=== PATIENT | female | born 1970 | race Caucasian/White ===

== ENCOUNTER 2017-08-14 15:05 | Observation (INO) ==
[2017-08-14] MEDS ORDERED: Ondansetron 4 MG/2 ML VIAL IVP PRN (15:10)
[2017-08-14] MEDS ORDERED: *HR* OxyCODONE/APAP 5/325 TABLET PO PRN (15:13)
[2017-08-14] MEDS ORDERED: Acetaminophen 325 MG TABLET PO PRN (15:13)
[2017-08-14] MEDS ORDERED: Nicotine 14 MG PATCH.TD24 TD PRN (15:14)
[2017-08-14] MEDS ORDERED: ALPRAZolam 1 MG TABLET PO PRN (15:15)
[2017-08-14] MEDS ORDERED: Simethicone 80 MG TAB.CHEW PO PRN (15:16)
--- NOTE | 2017-08-14 15:22 | General Surg History&Physical ---
Date of Encounter: 18 Time of Encounter: 15:20 Assessment and Plan (1) RUQ abdominal pain Status: Acute The assessment and plan as outlined above was discussed with the patient and/or family members who expressed understanding and agreement. All questions were answered. POD #[address] Victoria Admit to the hospital IV fluids HIDA scan in the am to rule out leak Toradol for discomfort scheduled Percocet for BTP Clear liquid diet, NPO at midnight pending HIDA scan results Check labs- CBC,BMP,Hepatic panel,Lipase,Amylase IS every 1 hour while awake Ambulate hallways PPI therapy daily Colace BID (2) Tobacco abuse Status: Chronic The assessment and plan as outlined above was discussed with the patient and/or family members who expressed understanding and agreement. All questions were answered. Smoking cessation education Nicotine patch prn (3) Anxiety and depression Status: Chronic The assessment and plan as outlined above was discussed with the patient and/or family members who expressed understanding and agreement. All questions were answered. Resume home medication regimen (4) DVT prophylaxis Status: Acute The assessment and plan as outlined above was discussed with the patient and/or family members who expressed understanding and agreement. All questions were answered. EPCDs to bilateral lower extremities for DVT prohylaxis Ambulate hallways TID History of Present Illness Chief complaint: RUQ pain HPI: See complete HPI in ECW report placed at the nurses station in the patient's chart Past Med Surg Social Fam HX - Past Medical History Source: patient, old records reviewed Medical history: GERD, kidney stones, migraine, other (colitis) Additional medical history: colitis, migraines. Depression. Anxiety. Acid Reflex Psychiatric history: anxiety, depression - Past Surgical History Surgical History: , cholecystectomy (POD #7), hysterectomy, other Additional surgical history: tubal ligtion 1999. bilateral CTR 2003. craniotomy 2010. thermacoice ablation 2005. C-Sections 1987, 1989. Aneurysm clpping 2010 - Social History Smoking Status: Current every day smoker Smokeless Tobacco Status: No Alcohol use: occasionally Drug use: none Occupational status: employed Current living situation: Home - Independent Activity Level: Independent ambulation - Family History Father Living Status: Hx Family Cardiac Disorders: Yes Hx Family Cancer: Yes Mother Living Status: Hx Family Cardiac Disorders: Yes Hx Family Cancer: Yes (Cervical) Sister Living Status: Still Living Hx Family Endocrine Disorder: Yes (Diabetes Mellitus) Paternal Grandmother Living Status: Cause of : Colon cancer Hx Family Cancer: Yes (Colon) Medications and Allergies ALPRAZolam [Xanax 1 MG Tablet] 1 mg PO BID PRN 08/07/17 [History] Acyclovir [Zovirax] 400 mg PO BID 08/07/17 [History] Docusate [Colace] 100 mg PO BID #30 capsule 08/07/17 [Rx] Oxycodone HCl/Acetaminophen [Percocet 5-325 mg Tablet] 1 each PO Q4HR PRN 5 Days #28 tablet 08/07/17 [Rx] Ranitidine HCl [Acid Biomass Technician] 150 mg PO BID 08/07/17 [History] Venlafaxine HCl [Venlafaxine HCl ER] 150 mg PO DAILY 08/07/17 [History] Dicyclomine [Bentyl] 10 mg PO QID #20 capsule 08/11/17 [Rx] Oxycodone HCl/Acetaminophen [Percocet 5-325 mg Tablet] 1 each PO Q4HR PRN 3 Days #16 tablet 08/11/17 [Rx] Simethicone [Gas-X] 80 mg PO TID #15 tab.chew 08/11/17 [Rx] 3 Allergy/AdvReac Type Severity Reaction Status Date / Time No Known Allergies Allergy Verified 08/07/17 07:51 Review of Systems All systems PM: reviewed and no additional remarkable complaints except as stated (in the HPI- ECW report) All systems PM: The remainder of the systems were reviewed and are negative General Surgery Exam - General physical appearance well developed, well nourished, moderate distress, moderate pain - Eyes PERRL, normal ocular movement - ENT normal mucosa, atraumatic, normocephalic - Neck trachea midline - Respiratory normal respiratory effort, clear to auscultation - Cardiovascular Cardiovascular exam: Present: RRR - Abdomen Abdomen general surgery: Present: bowel sounds present, soft, tender Abdominal Tenderness: Present: RUQ - Incision Incision: Present: clean and dry, intact - Integumentary Integumentary general surgery: Present: warm and dry - Neurologic Present: CN 2-12 grossly intact - Psychiatric Psychiatric general surgery: Present: appropriate, oriented to person, oriented to place, oriented to time, speech is normal, memory intact Results - Labs All other labs normal. - Imaging CT scan - abdomen: report reviewed CT scan - pelvis: report reviewed - Attending Attestation For this encounter, I have reviewed the VULCANIZER RUBBER PLATE or PA documentation, treatment plan, and medical decision making; and I have had face to face time with this patient.
[2017-08-14 16:30] LABS: Basophils # 0.1 K/mcL (0.0-0.2); Basophils % 0.7 %; Eosinophils # 0.4 K/mcL (0.0-0.6); Eosinophils % 3.4 %; Hematocrit 43.6 % (35.3-44.9); Hemoglobin 14.7 g/dL (11.5-15.4); Immature Granulocytes % 0.3 % (0-4); Lymphocytes # 3.2 K/mcL (0.6-4.6); Mean Corpuscular HGB Conc 33.7 g/dL (31.6-35.5); Mean Corpuscular Hemoglobin 32.8 pg (28.0-33.3); Mean Corpuscular Volume 97.3 fL (83.0-100.0); Mean Platelet Volume 9.2 fL (9.4-12.4); Monocytes % 8.1 %; Neutrophils # 7.5 K/mcL (1.6-8.9); Platelet Count 279 K/mcL (140-400); Red Blood Count 4.48 M/mcL (3.82-4.97); Red Cell Distribution Width 12.3 % (11.5-14.5); Segmented Neutrophils % 61.5 %
[2017-08-14 16:56] LABS: Alanine Aminotransferase 32 Units/L (7-52); Albumin 4.1 g/dL (3.5-5.7); Albumin/Globulin Ratio 1.6 (1.1-2.2); Alkaline Phosphatase 79 Units/L (34-104); Amylase 56 Units/L (29-103); Aspartate Amino Transferase 18 Units/L (13-39); BUN/Creatinine Ratio 21 (6-26); Bilirubin,Indirect 0.2 mg/dL (0.0-1.2); Bilirubin,Total 0.2 mg/dL (0.3-1.0); Blood Urea Nitrogen 15 mg/dL (6-20); Calcium 9.6 mg/dL (8.6-10.3); Carbon Dioxide 25 mEq/L (23-29); Chloride 108 mEq/L (98-107); Globulin 2.6 g/dL (2.4-3.5); Glucose 92 mg/dL (70-105); Lipase 26 Units/L (11-82); Osmolality,Calculated 288 (280-300); Potassium 4.1 mEq/L (3.5-5.1); Sodium 139 mEq/L (136-145); Total Protein 6.7 g/dL (6.4-8.9); eGFR For African Americans > 60 (> 60); eGFR For Non-African Americans > 60 (> 60)
[2017-08-14] MEDS: Ketorolac 15 MG/ML VIAL IVP SCH ×2 (17:59→18:15)
[2017-08-14] MEDS: 0.9 % Sodium Chloride 1,000 ML IVC SCH (18:15)
[2017-08-15] MEDS: Ketorolac 15 MG/ML VIAL IVP SCH ×2 (00:05→04:39)
[2017-08-15 07:53] VITALS: BP 108/69
[2017-08-15 08:31] LABS: Basophils # 0.1 K/mcL (0.0-0.2); Basophils % 0.8 %; Eosinophils # 0.4 K/mcL (0.0-0.6); Eosinophils % 4.1 %; Hematocrit 41.4 % (35.3-44.9); Hemoglobin 13.9 g/dL (11.5-15.4); Immature Granulocytes % 0.4 % (0-4); Lymphocytes # 2.2 K/mcL (0.6-4.6); Lymphocytes % 23.3 %; Mean Corpuscular HGB Conc 33.6 g/dL (31.6-35.5); Mean Corpuscular Hemoglobin 32.8 pg (28.0-33.3); Mean Corpuscular Volume 97.6 fL (83.0-100.0); Mean Platelet Volume 9.3 fL (9.4-12.4); Monocytes # 0.8 K/mcL (0.0-1.3); Monocytes % 8.2 %; Platelet Count 264 K/mcL (140-400); Red Blood Count 4.24 M/mcL (3.82-4.97); Red Cell Distribution Width 12.5 % (11.5-14.5); Segmented Neutrophils % 63.2 %
[2017-08-15 08:47] LABS: BUN/Creatinine Ratio 19 (6-26); Blood Urea Nitrogen 11 mg/dL (6-20); Calcium 8.9 mg/dL (8.6-10.3); Carbon Dioxide 22 mEq/L (23-29); Chloride 111 mEq/L (98-107); Glucose 96 mg/dL (70-105); Osmolality,Calculated 289 (280-300); Potassium 4.3 mEq/L (3.5-5.1); Sodium 140 mEq/L (136-145); eGFR For African Americans > 60 (> 60); eGFR For Non-African Americans > 60 (> 60)
[2017-08-15] MEDS ORDERED: Venlafaxine XR (24 HR) 150 MG CAP.ER.24H PO SCH (09:00)
[2017-08-15] MEDS: 0.9 % Sodium Chloride 1,000 ML IVC SCH (09:10)
--- NOTE | 2017-08-15 10:08 | Discharge Summary ---
Date of Encounter: 08/15/17 Time of Encounter: 10:00 - Discharge Diagnosis (1) RUQ abdominal pain Priority: Primary Status: Acute (2) Tobacco abuse Priority: Secondary Status: Chronic (3) Anxiety and depression Priority: Secondary Status: Chronic General Surgery Exam Initial Vital Signs Temp Pulse Resp BP Pulse Ox 98.2 F 84 16 123/82 97 08/14/17 15:54 08/14/17 15:54 08/14/17 15:54 08/14/17 15:54 08/14/17 15:54 - General physical appearance well developed, well nourished, no distress - Eyes normal ocular movement - ENT normal mucosa, atraumatic, normocephalic - Neck trachea midline - Respiratory normal respiratory effort, clear to auscultation - Cardiovascular Cardiovascular exam: Present: RRR - Abdomen Abdomen general surgery: Present: bowel sounds present, soft, tender Abdominal Tenderness: Present: RUQ (improving) - Incision Incision: Present: clean and dry, intact - Integumentary Integumentary general surgery: Present: warm and dry - Neurologic Present: CN 2-12 grossly intact - Musculoskeletal Present: normal gait, normal posture - Psychiatric Psychiatric general surgery: Present: appropriate, oriented to person, oriented to place, oriented to time, speech is normal, memory intact - Hospital Course Hospital course: Ms. Hawthorne is a 47 year old female who is 1 week status post cholecystectomy with Dr. Victoria. She was admitted to the hospital yesterday for persistent right upper quadrant pain. She was started on supportive care including IV fluids and pain control with Toradol. She did have a HIDA scan complete which shows no evidence of a biliary leak. The patient states that she feels better today with anti-inflammatories. Her vital signs are stable and she is afebrile. She is voiding and ambulating without difficulty. She is tolerating liquids without nausea or vomiting. We will begin discharge planning to home and plan for outpatient follow-up in 1 week. - Time Spent with Patient Total time spent providing and/or coordinating discharge services: Less than 30 minutes - Discharge Medications Prescriptions: Ibuprofen [Motrin] 800 mg PO Q8HR #40 tablet Home Medications: ALPRAZolam [Xanax 1 MG Tablet] 1 mg PO BID PRN 08/07/17 [History] Acyclovir [Zovirax] 400 mg PO BID 08/07/17 [History] Docusate [Colace] 100 mg PO BID #30 capsule 08/07/17 [Rx] Oxycodone HCl/Acetaminophen [Percocet 5-325 mg Tablet] 1 each PO Q4HR PRN 5 Days #28 tablet 08/07/17 [Rx] Ranitidine HCl [Acid Precision Grinder External] 150 mg PO BID 08/07/17 [History] Venlafaxine HCl [Venlafaxine HCl ER] 150 mg PO DAILY 08/07/17 [History] Dicyclomine [Bentyl] 10 mg PO QID #20 capsule 08/11/17 [Rx] Simethicone [Gas-X] 80 mg PO TID #15 tab.chew 08/11/17 [Rx] Ibuprofen [Motrin] 800 mg PO Q8HR #40 tablet 08/15/17 [Rx] Allergies/Adverse Reactions: 3 Allergy/AdvReac Type Severity Reaction Status Date / Time No Known Allergies Allergy Verified 08/07/17 07:51 Date of admission: 08/14/17 15:29 Primary care physician: Bia Cancino CNP Discharging clinician: Crys Kim Anticipated date of discharge: 08/15/17 Labs on day of discharge: Labs from last 24 hours 08/15/17 08/15/17 08/15/17 08:18 08:18 05:27 WBC 9.4 RBC 4.24 Hgb 13.9 Hct 41.4 MCV 97.6 MCH 32.8 MCHC 33.6 RDW 12.5 Plt Count 264 MPV 9.3 L Immature Gran % 0.4 Seg Neutrophils % 63.2 Lymphocytes % 23.3 Monocytes % 8.2 Eosinophils % 4.1 Basophils % 0.8 Neutrophils # 6.0 Lymphocytes # 2.2 Monocytes # 0.8 Eosinophils # 0.4 Basophils # 0.1 Sodium 140 Potassium 4.3 Chloride 111 H Carbon Dioxide 22 L BUN 11 Creatinine 0.57 L Est GFR ( Amer) > 60 Est GFR (Non-Af Amer) > 60 BUN/Creatinine Ratio 19 Glucose 96 POC Glucose 88 Calculated Osmolality 289 Calcium 8.9 Total Bilirubin Direct Bilirubin Indirect Bilirubin AST ALT Alkaline Phosphatase Serum Total Protein Albumin Globulin Albumin/Globulin Ratio Amylase Lipase 08/14/17 08/14/17 16:17 16:17 WBC 12.2 H RBC 4.48 Hgb 14.7 Hct 43.6 MCV 97.3 MCH 32.8 MCHC 33.7 RDW 12.3 Plt Count 279 MPV 9.2 L Immature Gran % 0.3 Seg Neutrophils % 61.5 Lymphocytes % 26.0 Monocytes % 8.1 Eosinophils % 3.4 Basophils % 0.7 Neutrophils # 7.5 Lymphocytes # 3.2 Monocytes # 1.0 Eosinophils # 0.4 Basophils # 0.1 Sodium 139 Potassium 4.1 Chloride 108 H Carbon Dioxide 25 BUN 15 Creatinine 0.70 Est GFR ( Amer) > 60 Est GFR (Non-Af Amer) > 60 BUN/Creatinine Ratio 21 Glucose 92 POC Glucose Calculated Osmolality 288 Calcium 9.6 Total Bilirubin 0.2 L Direct Bilirubin 0.0 Indirect Bilirubin 0.2 AST 18 ALT 32 Alkaline Phosphatase 79 Serum Total Protein 6.7 Albumin 4.1 Globulin 2.6 Albumin/Globulin Ratio 1.6 Amylase 56 Lipase 26 - Impressions ITS Impressions Bile Acid Absorption NM 08/15/17 07:00 IMPRESSION: No biliary leak identified. D/ / 08/15/2017 08:47:26 Jose Vargas MD / sherita Interpreting Provider: Jose Vargas MD - Patient Status Disposition: Home, Self-Care Condition: Good Functional capacity at discharge: independent ambulation Overall status at discharge: patient is progressing back to baseline - Discharge Instructions Instructions: Acute Abdominal Pain (DC) Follow Up With: Crysatl Olmos CNP [Advanced Practice Nurse] - 08/22/17 2:15 pm (surgery follow -up) Forms: Work/School Release Additional Instructions: #1 may shower, no tub bath for 2 weeks #2 wash incisions with soap and water and pat dry daily #3 no lifting, pushing, pulling more than 15 pounds for the next 1 more week #4 no driving until off narcotics for 24 hours and able to safely react in the car #5 may climb stairs - Diet and Activity Activity: other (See additional instructions above) Diet: advance to your usual diet - Attending Attestation For this encounter, I have reviewed the MANAGER MISSION or PA documentation, treatment plan, and medical decision making; and I have had face to face time with this patient.
== END 2017-08-15 10:44 | disposition home or self-care (01) ==
LOC: 3ANU
PROVIDERS: ADMIT Surgery; ATTEND Surgery

== ENCOUNTER 2018-07-09 15:39 | Inpatient (IN) ==
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
[2018-07-09] MEDS ORDERED: Isovue-370 500 ML BOTTLE IVP ONE (16:06)
[2018-07-09 16:35] LABS: Basophils # 0.1 K/mcL (0.0-0.2); Basophils % 0.6 %; Eosinophils # 0.1 K/mcL (0.0-0.6); Eosinophils % 0.8 %; Hematocrit 46.5 % (35.3-44.9); Hemoglobin 15.7 g/dL (11.5-15.4); Immature Granulocytes % 0.4 % (0-4); Lymphocytes # 2.4 K/mcL (0.6-4.6); Lymphocytes % 17.5 %; Mean Corpuscular HGB Conc 33.8 g/dL (31.6-35.5); Mean Corpuscular Volume 97.7 fL (83.0-100.0); Mean Platelet Volume 9.1 fL (9.4-12.4); Monocytes # 0.8 K/mcL (0.0-1.3); Monocytes % 5.7 %; Neutrophils # 10.2 K/mcL (1.6-8.9); Platelet Count 285 K/mcL (140-400); Red Blood Count 4.76 M/mcL (3.82-4.97); Red Cell Distribution Width 12.1 % (11.5-14.5)
[2018-07-09 16:36] LABS: Bilirubin,Urine Negative (Negative); Blood,Urine Negative (Negative); Clarity,Urine Clear (Clear); Color,Urine Yellow (Yellow); Glucose,Urine (UA) Normal (Normal); Ketones,Urine Negative (Negative); Leukocyte Esterase,Urine Negative (Negative); Nitrite,Urine Negative (Negative); Protein,Urine Negative (Neg-Trace); Specific Gravity,Urine 1.007 (1.010-1.025); Urobilinogen,Urine Normal (Normal)
[2018-07-09 16:42] LABS: Amphetamine Screen,Urine Negative ng/mL (Cutoff=1000); Barbiturate Screen,Urine Negative ng/mL (Cutoff=200); Benzodiazepines Screen,Urine Negative ng/mL (Cutoff=200); Cannabinoid Screen,Urine Negative ng/mL (Cutoff = 50); Cocaine Screen,Urine Negative ng/mL (Cutoff= 300); Opiate Screen,Urine Negative ng/mL (Cutoff=300); Phencyclidine Screen,Urine Negative ng/mL (Cutoff=25)
[2018-07-09 16:56] LABS: Acetaminophen < 10 mcg/mL (10-20); BUN/Creatinine Ratio 18 (6-26); Blood Urea Nitrogen 13 mg/dL (6-20); Calcium 9.8 mg/dL (8.6-10.3); Carbon Dioxide 27 mEq/L (23-29); Chloride 106 mEq/L (98-107); Ethanol < 10 mg/dL (Less than 10); Glucose 98 mg/dL (70-105); Osmolality,Calculated 286 (280-300); Potassium 4.1 mEq/L (3.5-5.1); Salicylate < 2.5 mg/dL (15.0-30.0); Sodium 138 mEq/L (136-145); eGFR For Non-African Americans > 60 (> 60)
--- NOTE | 2018-07-09 18:10 | Emergency Department Note ---
Disposition Clinical Impression: Suicidal ideation, Hanging Disposition: Admitted As Inpatient Condition: Fair Forms: ED Satisfaction Letter Time of Disposition: 18:25 General Adult HPI - General Chief complaint: ED Psychiatric Symptoms Stated complaint: SI Time Seen by Provider: 07/09/18 15:55 Source: patient, EMS Mode of arrival: EMS Limitations: no limitations - History of Present Illness Pain Scale: 1 - Related Data Home Medications Medication Instructions Recorded Confirmed ALPRAZolam [Xanax 1 MG Tablet] 1 mg PO BID PRN 08/07/17 08/15/17 Acyclovir [Zovirax] 400 mg PO BID 08/07/17 08/15/17 Ranitidine HCl [Acid Bleacher [employer]] 150 mg PO BID 08/07/17 08/15/17 Venlafaxine HCl [Venlafaxine HCl 150 mg PO DAILY 08/07/17 08/15/17 ER] Previous Rx's Medication Instructions Recorded Docusate [Colace] 100 mg PO BID #30 capsule 08/07/17 Oxycodone HCl/Acetaminophen 1 each PO Q4HR PRN 5 Days #28 08/07/17 [Percocet 5-325 mg Tablet] tablet Dicyclomine [Bentyl] 10 mg PO QID #20 capsule 08/11/17 Simethicone [Gas-X] 80 mg PO TID #15 tab.chew 08/11/17 Ibuprofen [Motrin] 800 mg PO Q8HR #40 tablet 08/15/17 Allergies Allergy/AdvReac Type Severity Reaction Status Date / Time No Known Allergies Allergy Verified 08/07/17 07:51 Past Medical History - Past Medical History Medical history: Reports: GERD, migraine, other Surgical history: Reports: , cholecystectomy, hysterectomy, other Psychiatric history: Reports: anxiety, depression, prior suicide attempt - Social History Smoking Status: Current every day smoker Smokeless Tobacco Status: No Alcohol use: Reports: occasionally Drug use: Reports: none Physical Exam - General Limitations: no limitations General appearance: alert Course Vital Signs Temperature 97.9 F 07/09/18 15:44 Pulse Rate 83 07/09/18 15:44 Respiratory Rate 16 07/09/18 15:44 Blood Pressure 120/75 07/09/18 15:44 O2 Sat by Pulse Oximetry 98 07/09/18 15:44 Temperature 97.9 F 07/09/18 15:44 Pulse Rate 83 07/09/18 15:44 Respiratory Rate 16 07/09/18 15:44 Blood Pressure 120/75 07/09/18 15:44 O2 Sat by Pulse Oximetry 98 07/09/18 15:44 Oxygen Delivery Oxygen Delivery Room Air Medical Decision Making - Lab Data Result diagrams: 07/09/18 16:22 07/09/18 16:22 Lab Results 07/09/18 07/09/18 07/09/18 Range/Units 16:03 16:03 16:22 WBC 13.6 H (4.3-11.1) K/mcL RBC 4.76 (3.82-4.97) M/mcL Hgb 15.7 H (11.5-15.4) g/dL Hct 46.5 H (35.3-44.9) % MCV 97.7 (83.0-100.0) fL MCH 33.0 (28.0-33.3) pg MCHC 33.8 (31.6-35.5) g/dL RDW 12.1 (11.5-14.5) % Plt Count 285 (140-400) K/mcL MPV 9.1 L (9.4-12.4) fL Immature Gran % 0.4 (0-4) % Seg Neutrophils % 75.0 % Lymphocytes % 17.5 % Monocytes % 5.7 % Eosinophils % 0.8 % Basophils % 0.6 % Neutrophils # 10.2 H (1.6-8.9) K/mcL Lymphocytes # 2.4 (0.6-4.6) K/mcL Monocytes # 0.8 (0.0-1.3) K/mcL Eosinophils # 0.1 (0.0-0.6) K/mcL Basophils # 0.1 (0.0-0.2) K/mcL Sodium (136-145) mEq/L Potassium (3.5-5.1) mEq/L Chloride (98-107) mEq/L Carbon Dioxide (23-29) mEq/L BUN (6-20) mg/dL Creatinine (0.60-1.20) mg/dL Est GFR ( Amer) (> 60) Est GFR (Non-Af Amer) (> 60) BUN/Creatinine Ratio (6-26) Glucose (70-105) mg/dL Calculated Osmolality (280-300) Calcium (8.6-10.3) mg/dL Urine Color Yellow (Yellow) Urine Clarity Clear (Clear) Urine pH 6.0 (5.0-8.0) pH Units Ur Specific [place] 1.007 L (1.010-1.025) Urine Protein Negative (Neg-Trace) mg/dL Urine Glucose (UA) Normal (Normal) mg/dL Urine Ketones Negative (Negative) mg/dL Urine Blood Negative (Negative) Urine Nitrite Negative (Negative) Urine Bilirubin Negative (Negative) Urine Urobilinogen Normal (Normal) mg/dL Ur Leukocyte Esterase Negative (Negative) Salicylates (15.0-30.0) mg/dL Urine Opiates Screen Negative (Khkqgv=499) ng/mL Acetaminophen (10-20) mcg/mL Ur Barbiturates Screen Negative (Dxaxkl=500) ng/mL Ur Phencyclidine Scrn Negative (Cutoff=25) ng/mL Ur Amphetamines Screen Negative (Jnfhuw=4238) ng/mL U Benzodiazepines Scrn Negative (Gfjgqw=190) ng/mL Urine Cocaine Screen Negative (Cutoff= 300) ng/mL U Marijuana (THC) Screen Negative (Cutoff = 50) ng/mL Ur Drug Screen Interp See Below Ethyl Alcohol (Less than 10) mg/dL 07/09/18 Range/Units 16:22 WBC (4.3-11.1) K/mcL RBC (3.82-4.97) M/mcL Hgb (11.5-15.4) g/dL Hct (35.3-44.9) % MCV (83.0-100.0) fL MCH (28.0-33.3) pg MCHC (31.6-35.5) g/dL RDW (11.5-14.5) % Plt Count (140-400) K/mcL MPV (9.4-12.4) fL Immature Gran % (0-4) % Seg Neutrophils % % Lymphocytes % % Monocytes % % Eosinophils % % Basophils % % Neutrophils # (1.6-8.9) K/mcL Lymphocytes # (0.6-4.6) K/mcL Monocytes # (0.0-1.3) K/mcL Eosinophils # (0.0-0.6) K/mcL Basophils # (0.0-0.2) K/mcL Sodium 138 (136-145) mEq/L Potassium 4.1 (3.5-5.1) mEq/L Chloride 106 (98-107) mEq/L Carbon Dioxide 27 (23-29) mEq/L BUN 13 (6-20) mg/dL Creatinine 0.73 (0.60-1.20) mg/dL Est GFR ( Amer) > 60 (> 60) Est GFR (Non-Af Amer) > 60 (> 60) BUN/Creatinine Ratio 18 (6-26) Glucose 98 (70-105) mg/dL Calculated Osmolality 286 (280-300) Calcium 9.8 (8.6-10.3) mg/dL Urine Color (Yellow) Urine Clarity (Clear) Urine pH (5.0-8.0) pH Units Ur Specific [place] (1.010-1.025) Urine Protein (Neg-Trace) mg/dL Urine Glucose (UA) (Normal) mg/dL Urine Ketones (Negative) mg/dL Urine Blood (Negative) Urine Nitrite (Negative) Urine Bilirubin (Negative) Urine Urobilinogen (Normal) mg/dL Ur Leukocyte Esterase (Negative) Salicylates < 2.5 L (15.0-30.0) mg/dL Urine Opiates Screen (Elclnh=417) ng/mL Acetaminophen < 10 L (10-20) mcg/mL Ur Barbiturates Screen (Vylajz=669) ng/mL Ur Phencyclidine Scrn (Cutoff=25) ng/mL Ur Amphetamines Screen (Hfozmb=5213) ng/mL U Benzodiazepines Scrn (Ycebuq=989) ng/mL Urine Cocaine Screen (Cutoff= 300) ng/mL U Marijuana (THC) Screen (Cutoff = 50) ng/mL Ur Drug Screen Interp Ethyl Alcohol < 10 (Less than 10) mg/dL Attestation Statement - Attestation Attestation: I, Stephon Camarillo DO, examined this patient [id number] and my medical decision-making was reviewed with Randall Grey PGY-1, Resident Physician. I agree with the documented findings, disposition and treatment plan as described except to the extent set forth below. I personally supervised and was present for the daly/critical portions of the procedures completed by the resident documented below. Please see my progress notes for details. 48-year-old female presents emergency room by EMS for evaluation of being found hanging from a tree by a belt. Patient was cut down by a friend. She woke up easily after she was removed from the tree. She is mentating appropriately but does have ligature schroeder on her neck. Patient had c-collar placed and then removed it on her own on the way to the emergency department. Vital signs are stable transport. Patient is otherwise in no distress on arrival. She is tearful describing significant life stressors but is saying that she would not want to hurt herself. Currently she denying chest pain, shortness of breath, headache, vision changes, nausea, vomiting, diarrhea. No fevers no chills. No headache no vision change at this time. Head is atraumatic. Oropharynx is pain . Patient has no crepitus or deformity to the neck. She did not jump or have a long fall. She does turn to chair sideways and home from the tree branch. She has ligature schroeder the neck. She has no signs of decreased breath sounds heart is regular lungs are clear extremities are normal. She denies any other coingestion. CT of the cervical spine along with CT angiography the neck will be completed. Screening labs for psychiatric evaluation will be established and pink slip was signed. Physical exam is otherwise unremarkable. Disposition pending full workup and treatment course. See detailed documentation of the physical exam, medical intervention, medical decision-making and disposition in the resident physician's note. No critical care applied the patient's treatment course at this time. 1815 Patient was evaluated by the psychiatric team. CT angiography of the neck and cervical spine are negative. Patient is going to be admitted by the psychiatric team. Patient is otherwise stable. We will monitor here in the emergency department until the admission is completed.
[2018-07-09] MEDS ORDERED: MOM Conc 10 ML UD.LIQ PO PRN (19:02)
[2018-07-09] MEDS ORDERED: Haloperidol Lactate 5 MG/ML VIAL IM PRN (19:02)
[2018-07-09] MEDS ORDERED: *HR* LORazepam 2 MG/ML VIAL IM PRN (19:02)
[2018-07-09] MEDS ORDERED: *HR* LORazepam 1 MG TABLET PO PRN (19:02)
[2018-07-09] MEDS ORDERED: Acetaminophen 325 MG TABLET PO PRN (19:02)
[2018-07-09] MEDS ORDERED: Mag Hydrox/Al Hydrox/Simeth 30 ML UDC PO PRN (19:02)
[2018-07-09] MEDS ORDERED: Ibuprofen 400 MG TABLET PO PRN (19:29)
[2018-07-09] MEDS: traZODone 50 MG TABLET PO PRN (21:14)
[2018-07-09] MEDS: hydrOXYzine pamoate 25 MG CAPSULE PO PRN (21:14)
[2018-07-10] MEDS: Nicotine 14 MG PATCH.TD24 TD SCH (08:58)
--- NOTE | 2018-07-10 13:29 | Psychiatry History & Physical ---
Date of Encounter: 07/10/18 Time of Encounter: 12:58 History of Present Illness Patient Stated Chief Complaint: suicide attempt Medicare Admission Attestation: For traditional Medicare patients the provided hospital inpatient services are reasonable and necessary and in the case of services not specified as inpatient-only under 42 CFR 419.22 (n), that they are appropriately provided as inpatient services in accordance 42 CFR 412.3. For Critical Access Hospital the patient may reasonably be expected to be discharged or transferred to a hospital within 96 hours after admission to the Critical Access Hospital. Admitted From: Home Plans for Post Hospital Care: Home History of Present Illness: Ms. Hawthorne is a 48 year old female who was admitted after a failed hanging attempt. 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 Client states even though she tried to get mental health services at that time it did not work out and she has not made any further attempts. She does take Effexor and Klonopin through her PCP but admits she does not always take these meds as prescribed. Client denies any previous suicide attempts. Admits that she has both a niece and nephew who have committed suicide but that these deaths are remote. Unaware of any other mental health diagnoses in family members. 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 No AOD use. Client states today that she embarrassed about what she did. Also states she feels like this was a wake up call for her and that she wants to get help. Denies any further SI, intent, or plan. Upset when told she won't be discharged today given the seriousness of what she did. Walked out of room when told she would be staying in the hospital for at least tonight. Client states her daughter can stay with her after discharge. Plan for today will be to talk to daughter and link client with outpatient follow-up. Client likes the Effexor and Klonopin so will continue these meds for now. Client may be ready for discharge tomorrow but want to verify safety with family first. Client seems genuine in wanting to get help and seems legitimately ashamed of her actions. "I'm better than that." However, given her situation it is best to monitor her for another night. Past Med Surg Social Fam HX - Past Medical History Medical history: GERD, migraine, other - Past Psychiatric History Psychiatric history: Reports: no psych history Family psychiatric history: Yes Family Psychiatric History Details: niece and nephew Family History of Suicide: Completed Family Suicide History Details: niece and nephew - Past Surgical History Surgical History: , cholecystectomy, hysterectomy, other - Social History Smoking Status: Current every day smoker Smokeless Tobacco Status: No Alcohol use: occasionally Drug use: none - Family History Father Living Status: Hx Family Cardiac Disorders: Yes Hx Family Cancer: Yes Mother Living Status: Hx Family Cardiac Disorders: Yes Hx Family Cancer: Yes (Cervical) Sister Living Status: Still Living Hx Family Endocrine Disorder: Yes (Diabetes Mellitus) Paternal Grandmother Living Status: Hx Family Cancer: Yes (Colon) Medications & Allergies Acyclovir [Zovirax] 400 mg PO BID 08/07/17 [History] Ranitidine HCl [Acid Dietary Server] 150 mg PO BID 08/07/17 [History] Venlafaxine HCl [Venlafaxine HCl ER] 150 mg PO DAILY 08/07/17 [History] Dicyclomine [Bentyl] 10 mg PO QID PRN 07/09/18 [History] Oxybutynin Chloride [Ditropan Xl] 10 mg PO DAILY 07/09/18 [History] clonazePAM [Clonazepam] 1 mg PO TID PRN 07/09/18 [History] Allergy/AdvReac Type Severity Reaction Status Date / Time No Known Allergies Allergy Verified 08/07/17 07:51 Review of Systems Constitutional: Denies: fever, chills, weakness, weight change Eyes: Denies: eye pain, vision change Ears, Nose, Throat: Denies: ear pain, throat pain, dental pain, hearing loss, congestion Cardiovascular: Denies: chest pain, palpitations, dyspnea on exertion Respiratory: Denies: cough, dyspnea, wheezes Gastrointestinal: Denies: abdominal pain, nausea, vomiting, diarrhea, constipation Genitourinary female: Denies: urgency, dysuria, frequency, abnormal menses, dyspareunia Musculoskeletal: Denies: joint swelling, joint pain Integumentary: Denies: rash, lesions, pruritus Neurological: Denies: headache, weakness, numbness, memory loss Endocrine: Denies: fatigue, heat or cold intolerance Hematologic/Lymphatic: Denies: easy bruising, lymphadenopathy Allergic/Immunologic: Denies: urticaria, itchy eyes Exam - HEENT Head exam IM: Present: atraumatic Eye exam IM: Present: EOMI, normal appearance, PERRL ENT exam IM: Present: normal exam - Neurological Neurological exam: Present: CN II-XII intact - Respiratory Respiratory exam IM: Present: CTAB - GI/Abdominal GI/Abdominal exam IM: Present: normal bowel sounds, soft. Absent: tenderness - Extremities Extremities exam IM: Present: full ROM - Skin Skin exam IM: Present: abrasion - Constitutional Vitals: Temp Pulse Resp BP Pulse Ox 97.3 F L 78 16 111/65 95 07/10/18 09:00 07/10/18 09:00 07/10/18 09:00 07/10/18 09:00 07/10/18 09:00 General appearance: age & developmentally appropriate, well-groomed, well- nourished - Musculoskeletal Gait: normal Station: relaxed Strength & Tone: normal for patient - Psychiatric Patient Orientation: Yes Person, Yes Time, Yes Place Level of alertness: Alert Behavior: calm, cooperative Psychomotor activity: Normal Eye Contact: Maintains Eye Contact Mood Description: Depressed Affect description: full range Speech Volume: Normal Speech pattern: normal rate, normal rhythm, normal tone, fluent, spontaneous Language & Vocabulary: consistent with education Thought Process: Linear, Goal Oriented Thought Content: No Suicidal ideation, No Homicidal ideation, No Overt delusions Perceptual Disturbances: No Auditory hallucinations, No Visual hallucinations Attention Span Ability: Capable of Focused Attention Memory Description: Grossly Intact Patient Reliability: Reliable Historian Fund of knowledge: Yes abstraction ability, Yes average, Yes aware of current events Intelligence Estimate: Average Judgment: Limited Insight: Minimal Results - Drug Levels and Toxicology Drug Levels and Toxicology: Drug Levels and Toxicity 07/09/18 07/09/18 16:03 16:22 Urine Opiates Screen Negative Acetaminophen < 10 L Ur Barbiturates Screen Negative Ur Phencyclidine Scrn Negative Ur Amphetamines Screen Negative U Benzodiazepines Scrn Negative Urine Cocaine Screen Negative U Marijuana (THC) Screen Negative Ethyl Alcohol < 10 - Labs Labs: Laboratory Last Values WBC 13.6 K/mcL (4.3-11.1) H 07/09/18 16:22 RBC 4.76 M/mcL (3.82-4.97) 07/09/18 16:22 Hgb 15.7 g/dL (11.5-15.4) H 07/09/18 16:22 Hct 46.5 % (35.3-44.9) H 07/09/18 16:22 MCV 97.7 fL (83.0-100.0) 07/09/18 16:22 MCH 33.0 pg (28.0-33.3) 07/09/18 16:22 MCHC 33.8 g/dL (31.6-35.5) 07/09/18 16:22 RDW 12.1 % (11.5-14.5) 07/09/18 16:22 Plt Count 285 K/mcL (140-400) 07/09/18 16:22 MPV 9.1 fL (9.4-12.4) L 07/09/18 16:22 Immature Gran % 0.4 % (0-4) 07/09/18 16:22 Seg Neutrophils % 75.0 % 07/09/18 16:22 17.5 % 07/09/18 16:22 5.7 % 07/09/18 16:22 0.8 % 07/09/18 16:22 0.6 % 07/09/18 16:22 10.2 K/mcL (1.6-8.9) H 07/09/18 16:22 2.4 K/mcL (0.6-4.6) 07/09/18 16:22 0.8 K/mcL (0.0-1.3) 07/09/18 16:22 0.1 K/mcL (0.0-0.6) 07/09/18 16:22 0.1 K/mcL (0.0-0.2) 07/09/18 16:22 Sodium 138 mEq/L (136-145) 07/09/18 16:22 Potassium 4.1 mEq/L (3.5-5.1) 07/09/18 16:22 Chloride 106 mEq/L (98-107) 07/09/18 16:22 Carbon Dioxide 27 mEq/L (23-29) 07/09/18 16:22 BUN 13 mg/dL (6-20) 07/09/18 16:22 0.73 mg/dL (0.60-1.20) 07/09/18 16:22 Est GFR ( Amer) > 60 (> 60) 07/09/18 16:22 Est GFR (Non-Af Amer) > 60 (> 60) 07/09/18 16:22 18 (6-26) 07/09/18 16:22 Glucose 98 mg/dL (70-105) 07/09/18 16:22 286 (280-300) 07/09/18 16:22 Calcium 9.8 mg/dL (8.6-10.3) 07/09/18 16:22 Yellow (Yellow) 07/09/18 16:03 Clear (Clear) 07/09/18 16:03 6.0 pH Units (5.0-8.0) 07/09/18 16:03 Ur Specific [place] 1.007 (1.010-1.025) L 07/09/18 16:03 Negative mg/dL (Neg-Trace) 07/09/18 16:03 Normal mg/dL (Normal) 07/09/18 16:03 Negative mg/dL (Negative) 07/09/18 16:03 Negative (Negative) 07/09/18 16:03 Negative (Negative) 07/09/18 16:03 Negative (Negative) 07/09/18 16:03 Normal mg/dL (Normal) 07/09/18 16:03 Ur Leukocyte Esterase Negative (Negative) 07/09/18 16:03 Salicylates < 2.5 mg/dL (15.0-30.0) L 07/09/18 16:22 Negative ng/mL (Hxktkb=177) 07/09/18 16:03 Acetaminophen < 10 mcg/mL (10-20) L 07/09/18 16:22 Ur Barbiturates Screen Negative ng/mL (Hyvdml=349) 07/09/18 16:03 Ur Phencyclidine Scrn Negative ng/mL (Cutoff=25) 07/09/18 16:03 Ur Amphetamines Screen Negative ng/mL (Zytbid=3661) 07/09/18 16:03 U Benzodiazepines Scrn Negative ng/mL (Zitckg=831) 07/09/18 16:03 Negative ng/mL (Cutoff= 300) 07/09/18 16:03 U Marijuana (THC) Screen Negative ng/mL (Cutoff = 50) 07/09/18 16:03 Ur Drug Screen Interp See Below 07/09/18 16:03 Ethyl Alcohol < 10 mg/dL (Less than 10) 07/09/18 16:22 - Impressions Impressions Cervical Spine CT 07/09/18 16:06 IMPRESSION: 1. No acute findings in the cervical spine. 2. Minimal to mild cervical spine degenerative changes. D/ / Usman Ospina MD / Usman Ospina MD Interpreting Provider: Usman Ospina MD Neck CTA 07/09/18 16:06 IMPRESSION: Unremarkable CTA of the neck. D/ / Jose Abarca / Jose Abarca Interpreting Provider: Jose Abarca Assessment and Plan (1) Major depress dis, severe Current visit: Yes Status: Acute Plan: Admit inpatient for safety and stabilization, Close observation, Suicide Precautions per unit protocol, Encourage participation in unit milieu, Group Therapy, Monitor sleep, Monitor appetite Risks, benefits, side effects, alternatives discussed w/pt: Yes Patient agreeable to treatment: Yes Plans for Post Hospital Care: Home Estimated Length of Stay (Days): 3
[2018-07-10] MEDS ORDERED: clonazePAM 1 MG TABLET PO PRN (13:32)
[2018-07-10] MEDS: Venlafaxine XR (24 HR) 150 MG CAP.ER.24H PO SCH (14:30)
[2018-07-10] MEDS: hydrOXYzine pamoate 25 MG CAPSULE PO PRN (22:01)
[2018-07-10] MEDS: traZODone 50 MG TABLET PO PRN (22:01)
--- NOTE | 2018-07-11 09:11 | Discharge Summary ---
Date of Encounter: 07/11/18 Time of Encounter: 09:07 Diagnosis - Discharge Diagnosis (1) Major depress dis, severe Status: Acute Medications - Discharge Medications Acyclovir [Zovirax] 400 mg PO BID 08/07/17 [History] Ranitidine HCl [Acid Tableau Developer] 150 mg PO BID 08/07/17 [History] Venlafaxine HCl [Venlafaxine HCl ER] 150 mg PO DAILY 08/07/17 [History] Dicyclomine [Bentyl] 10 mg PO QID PRN 07/09/18 [History] Oxybutynin Chloride [Ditropan Xl] 10 mg PO DAILY 07/09/18 [History] clonazePAM [Clonazepam] 1 mg PO TID PRN 07/09/18 [History] Allergy/AdvReac Type Severity Reaction Status Date / Time No Known Allergies Allergy Verified 08/07/17 07:51 Results Procedures and tests throughout hospitalization: Completed Lab Orders Category Date Time Status Acetaminophen Stat Lab 07/09/18 16:22 Completed Basic Metabolic Panel Stat Lab 07/09/18 16:22 Completed Complete Blood Count [HEME] Stat Lab 07/09/18 16:22 Completed Drug Screen, Urine [UCHEM] Stat Lab 07/09/18 16:03 Completed Ethanol Stat Lab 07/09/18 16:22 Completed Salicylate Stat Lab 07/09/18 16:22 Completed Urinalysis reflex Microscopic [URIN] Stat Lab 07/09/18 16:03 Completed Completed Imaging Orders Category Date Time Status CT angio neck [CT] Stat Cat Scan 07/09/18 16:[address] cervical spine wo con [CT] Stat Cat Scan 07/09/18 16:06 Completed Provider Date of admission: 07/09/18 18:28 Primary care physician: PCP NONE Discharging clinician: Abigail Marquez Psychiatry Exam - Constitutional Vitals: Temp Pulse Resp BP Pulse Ox 97.8 F 71 16 129/81 96 07/10/18 19:26 07/10/18 19:26 07/10/18 19:26 07/10/18 19:26 07/10/18 19:26 General appearance: age & developmentally appropriate, well-groomed, well- nourished - Musculoskeletal Gait: normal Station: relaxed Strength & Tone: normal for patient - Psychiatric Patient Orientation: Yes Person, Yes Time, Yes Place Level of alertness: Alert Behavior: calm, cooperative Psychomotor activity: Normal Eye Contact: Maintains Eye Contact Mood Description: Euthymic/stable Affect description: congruent with mood, full range Speech Volume: Normal Speech pattern: normal rate, normal rhythm, normal tone, fluent, spontaneous Language & Vocabulary: consistent with education Thought Process: Linear, Goal Oriented Thought Content: No Suicidal ideation, No Homicidal ideation, No Overt delusions Perceptual Disturbances: No Auditory hallucinations, No Visual hallucinations Attention Span Ability: Capable of Focused Attention Memory Description: Grossly Intact Patient Reliability: Reliable Historian Fund of knowledge: Yes abstraction ability, Yes aware of current events Intelligence Estimate: Average Judgment: Fair Insight: Partial Hospital Course Hospital course: Ms. Hawthorne is a 48 year old female who was admitted following a hanging attempt. From the time of admission she denied any further SI, intent, or plan. She consistently said she was ashamed of her actions and that she is a "better person than that." No real mental health history except seeing her PCP for antidepressants which were continued throughout her inpatient stay. Staff spoke with her daughter who is very supportive and agreed her mother was safe to discharge home. Her daughter and sister plan to stay with her for a while after discharge. Client has been linked with [facility] and client reports she is eager to follow up there. On the unit she has been bright, reactive, and future oriented. Attending groups. Eating and sleeping well. Looks stable. Total time spent with client greater than 30 minutes. Patient was educated of her diagnosis and the risks, benefits, and side effects of this treatment and alternative treatment options and was monitored for responsiveness and side effects. Mood, anxiety, sleep, appetite, and interest improved, as did future orientation. Self-harm thoughts subsided, thinking cleared, psychosis resolved, and mood stabilized. Patient was able to attend both individual and group therapy sessions as well as meeting with the psychiatrist daily and urged to discuss any medication or treatment issues or other concerns. The patient was educated primarily by verbal means about their diagnosis and manifestations in their life. The option for treatment including group and individual therapy programming was offered to the patient in the use of medications with all their potential risks, benefits, and side effects were discussed with the patient at length. The patient was given the opportunity to ask questions and was noted to participate in the treatment in the planning process. The patient felt ready and eager to be discharged from the inpatient psychiatric unit to continue on with treatment as an outpatient. The patient agreed that she is safe for this disposition. The patient was considered to be able to participate in informed consent and decision making with respect to medical, legal, and financial issues of the time of discharge. At the time of discharge the patient adamantly denied any concerns for lethality including suicidal or homicidal thoughts ideations or plans and was future oriented toward ongoing mental health care, medical follow-up and sobriety. - Time Spent with Patient Total time spent providing and/or coordinating discharge services: Assessment and Plan - Patient/Caregiver Discharge Instructions Activity: resume usual activities as tolerated Diet: regular diet - Follow up Plan Follow up with: NONE,PCP [Primary Care Provider] - Functional capacity at discharge: independent ambulation Overall status at discharge: Stable Disposition: Home, Self-Care Quality - Multiple Antipsychotics Patient discharged on 2 or more antipsychotic medications: No Procedures - Procedures Procedures: Medication Management, Crisis Stabilization, Supportive Therapy, Group Therapy
[2018-07-11] MEDS: Venlafaxine XR (24 HR) 150 MG CAP.ER.24H PO SCH (09:27)
[2018-07-11] MEDS: Nicotine 14 MG PATCH.TD24 TD SCH (09:28)
[2018-07-11 09:30] VITALS: BP 96/67
== END 2018-07-11 10:15 | disposition home or self-care (01) | DRG 923 ==
LOC: EMEROOARM 15:39 → 1ANU 18:28
PROVIDERS: ADMIT Psychiatry & Neurology Psychiatry; ATTEND Psychiatry & Neurology Psychiatry